=== PATIENT | female | born 1950 | race Caucasian/White ===

== ENCOUNTER → 2020-03-10 12:24 | Outpatient (CLI) | payer MEDICARE, SELFPAY ==
--- NOTE | ~2020-03-10 | MM_ITS ---
EXAMINATION: MM screening krista BI w adria HISTORY: Screening mammogram TECHNIQUE: Craniocaudal and mediolateral oblique 3-D tomosynthesis images were obtained and synthetic 2-D images were generated. CAD analysis was submitted and interpreted. COMPARISON: 11/01/2018, 10/05/2017, 09/30/2016 bilateral digital screening mammogram examinations BREAST PARENCHYMAL COMPOSITION: There are scattered areas of fibroglandular density. FINDINGS: There is a new approximately 3 x 5 mm circumscribed opacity situated posteriorly in the low er outer quadrant of the left breast. Diagnostic left mammogram and left breast ultrasound are recomm ended. Otherwise there is no evidence of suspicious mass, calcification, or architectural distortion to sugg est malignancy in either breast. There are numerous bilateral benign calcifications. There has been n o other suspicious interval change. IMPRESSION: 1. No mammographic evidence of malignancy. 2. Recommend routine screening mammography in one year. BI-RADS Category 0: Incomplete: Needs additional imaging evaluation. Reviewed, dictated and finalized at location A.
== END ==
PROVIDERS: PCP Family Medicine Adolescent Medicine; Visit Provider Family Medicine Adolescent Medicine
DX: Z12.31 Encounter for screening mammogram for malignant neoplasm of breast (principal); R92.8 Other abnormal and inconclusive findings on diagnostic imaging of breast
CPT/HCPCS: 77063; 77067

== ENCOUNTER → 2020-04-14 08:10 | Outpatient (CLI) | payer MEDICARE, SELFPAY ==
--- NOTE | ~2020-04-14 | MMUS_ITS ---
EXAMINATION: MM diagnostic krista LT w adria, US breast LT limited HISTORY: New approximately 3 x 5 mm circumscribed opacity posteriorly situated and lower-outer quadra nts of left breast on screening mammogram of 03/10/2020 TECHNIQUE: Additional 3-D tomosynthesis images of the left breast were performed and synthetic 2-D im ages were generated. CAD analysis was submitted and interpreted. High resolution targeted 5:00 left b reast ultrasound was performed. COMPARISON: 03/10/2020 bilateral digital screening mammogram BREAST PARENCHYMAL COMPOSITION: There are scattered areas of fibroglandular density. FINDINGS: MAMMOGRAPHIC FINDINGS: Approximately 3 x 5 mm circumscribed opacity is confirmed posteriorly in the inner aspect of the lowe r outer quadrant of the left breast. No other mass or any architectural distortion is evident. There are scattered benign calcifications. ULTRASOUND: Targeted ultrasound at 5:00 6.5 cm from the nipple reveals a 3 x 6 mm sonolucency compatible with sma ll cyst. This corresponds to the mammographic finding. IMPRESSION: 1. Benign 3 x 6 mm cyst at 5:00 2. Routine mammographic screening is recommended. BI-RADS Category 2: Benign finding(s). Reviewed, dictated and finalized at location A. IMPRESSION: 1. Benign 3 x 6 mm cyst at 5:00 2. Routine mammographic screening is recommended. BI-RADS Category 2: Benign finding(s).
== END ==
PROVIDERS: PCP Family Medicine Adolescent Medicine; Visit Provider Physician Assistant
DX: R92.8 Other abnormal and inconclusive findings on diagnostic imaging of breast (principal)
CPT/HCPCS: 76642; 77061; 77065; G0279

== ENCOUNTER → 2021-06-01 13:03 | Outpatient (CLI) | payer MEDICARE, SELFPAY ==
--- NOTE | ~2021-06-01 | MM_ITS ---
EXAMINATION: MM screening krista BI w adria HISTORY: Screening mammogram TECHNIQUE: Craniocaudal and mediolateral oblique 3-D tomosynthesis images were obtained and synthetic 2-D images were generated. CAD analysis was submitted and interpreted. COMPARISON: 04/14/2020 diagnostic left mammogram and limited left breast ultrasound 03/10/2020, 11/01/2018, 10/05/2017 bilateral screening mammogram examinations BREAST PARENCHYMAL COMPOSITION: There are scattered areas of fibroglandular density. FINDINGS: Numerous bilateral benign sebaceous cyst calcifications. There is no evidence of suspicious mass, calcification, or architectural distortion to suggest malignancy in either breast. There has b een no suspicious interval change. IMPRESSION: 1. No mammographic evidence of malignancy. 2. Recommend routine screening mammography in one year. BI-RADS Category 2: Benign finding(s). Reviewed, dictated and finalized at location A. MER CHEMIST
== END ==
PROVIDERS: PCP Family Medicine Adolescent Medicine; Visit Provider Family Medicine Adolescent Medicine
DX: Z12.31 Encounter for screening mammogram for malignant neoplasm of breast (principal)
CPT/HCPCS: 77063; 77067

== ENCOUNTER 2021-08-17 00:15 | Day surgery (SDC) | payer MEDICARE, SELFPAY ==
[2021-08-06 14:37] VITALS: BMI 30.2
[2021-08-17 06:22] VITALS: BP 165/83; PULSE 93; RESP 18; TEMP 36.7; O2SAT 98
[2021-08-17] MEDS: LACTATED RINGERS 1,000 ML 150 ML IV CONT (06:33)
--- NOTE | 2021-08-17 07:16 | P.PNAN_ITS ---
Anes - Initial Pre Proc Eval Procedure: Operation Date: 08/17/21 07:30 Proposed Procedures p Screening Colonoscopy - Flaquito Ivey MD Date/Time: 08/17/21 07:16 Surgeon: Flaquito Ivey MD Pre Op Diagnosis: hx of colon polyps Patient Data Age: 70 Gender: F Height: 1.68 m Weight: 82.3 kg Last Vital Signs Temp 98.1 F 08/17/21 06:22 Pulse 93 08/17/21 06:22 Resp 18 08/17/21 06:22 BP 165/83 H 08/17/21 06:22 Pulse Ox 98 08/17/21 06:22 Allergies Allergy/AdvReac Type Severity Reaction Status Date / Time No Known Allergies Allergy Mild Verified 08/17/21 06:21 Home Medications Medication Instructions Recorded Confirmed Type calcium carbonate-vitamin D3 1 tablet PO DAILY 12/28/20 08/06/21 History [Calcium 600 + D(3)] levothyroxine 75 mcg PO DAILY 12/28/20 08/06/21 History quinapril-hydrochlorothiazide 1 tablet PO QPM 12/28/20 08/06/21 History simvastatin 40 mg PO DAILY 12/28/20 08/06/21 History Patient hx anesthesia problems: none Family hx anesthesia problems: none Results Review: All pre-operative results and documents have been reviewed as part of the pre-operative evaluation. PENDING SALE TO [facility] Social History Social History Smoking status: Never smoker Alcohol intake: current Alcohol use details: occasional Substance use: never Substance use type: does not use Living arrangements: with family Spiritual care concerns: No Anes - Eval Final PreProcedure Day of Procedure 08/17/21 07:16 Patient weight: obese Heart: regular rate and rhythm Lungs: clear to auscultation Airway: Mallampati scale class II Neurological: alert and oriented Last oral intake: >/= 8 hours ASA classification: III Emergent: no Anesthetic plan: proceed Anesthesia type and monitoring: general GIVS and standard monitoring Results Review: All pre-operative results and documents have been reviewed as part of the pre-operative evaluation. Informed Consent: The patient's anesthetic plan and its attendant risks and benefits were discussed with the patient/family/POA. Questions were solicited and answers provided to the satisfaction of the patient/family/POA.
--- NOTE | 2021-08-17 07:56 | WPDGICN ---
Assessment and Plan Assessment and plan (1) History of colon polyps: Code(s): Z86.010 - Personal history of colonic polyps Status: Acute Assessment and Plan: Patient has a prior history of colon polyps. She presents today for screening colonoscopy. Follow-up exams at intervals are is advised in the future. GI Consult Note Consult date/time: 08/17/21 07:56 HPI: Natalee Singer is a 70 year old female Presents for screening colonoscopy. Patient has a history of colon polyps on several previous colonoscopies. Most recently fiber 6 years ago. Patient reports her current weight appetite bowel movements are normal. She denies abdominal pain. She has had no bleeding. Family history is noncontributory. Review of Systems Review of Systems: All systems reviewed & are unremarkable except as noted in HPI and below PMFSH Social History Social History Smoking status: Never smoker Alcohol intake: current Alcohol use details: occasional Substance use: never Substance use type: does not use Living arrangements: with family Spiritual care concerns: No Meds Home Medications and Allergies Home Medications Medication Instructions Recorded Confirmed Type calcium carbonate-vitamin D3 1 tablet PO DAILY 12/28/20 08/06/21 History [Calcium 600 + D(3)] levothyroxine 75 mcg PO DAILY 12/28/20 08/06/21 History quinapril-hydrochlorothiazide 1 tablet PO QPM 12/28/20 08/06/21 History simvastatin 40 mg PO DAILY 12/28/20 08/06/21 History Allergies Allergy/AdvReac Type Severity Reaction Status Date / Time No Known Allergies Allergy Mild Verified 08/17/21 06:21 Vital Signs Vital Signs - 24 hr 08/17/21 06:22 Temperature 98.1 F Pulse Rate 93 Respiratory Rate 18 Blood Pressure 165/83 H Pulse Oximetry 98 Exam Narrative: Physical exam reveals patient to be alert. Vital signs stable. HEENT exam is unremarkable. Patient is anicteric. Lungs are clear to auscultation and percussion. Heart is without murmur or extra sounds. Abdominal exam bowel sounds are present soft nontender with no organomegaly. Digital external rectal exam is normal.
[2021-08-17 07:58] VITALS: BP 96/55; PULSE 69; RESP 17; O2SAT 94
[2021-08-17 08:08] VITALS: BP 132/79; PULSE 71; RESP 21; O2SAT 100
[2021-08-17 08:18] VITALS: BP 134/86; PULSE 71; RESP 17; O2SAT 100
== END 2021-08-17 08:27 | disposition home or self-care (01) ==
PROVIDERS: PCP Family Medicine Adolescent Medicine; Visit Provider Internal Medicine Gastroenterology
PROC: 0DJD8ZZ Inspection of Lower Intestinal Tract, Via Natural or Artificial Opening Endoscopic (ICD-10-PCS; CPT 45378; principal; 2021-08-17 07:30)
DX: Z12.11 Encounter for screening for malignant neoplasm of colon (principal); K63.5 Polyp of colon; E66.9 Obesity, unspecified; Z68.29 Body mass index [BMI] 29.0-29.9, adult
CPT/HCPCS: 45385; 88305; J2704; J7120

== ENCOUNTER → 2022-08-29 13:24 | Outpatient (CLI) | payer MEDICARE, SELFPAY ==
--- NOTE | ~2022-08-29 | MM_ITS ---
EXAMINATION: MM screening krista BI w adria HISTORY: Screening mammogram TECHNIQUE: Craniocaudal and mediolateral oblique 3-D tomosynthesis images were obtained and synthetic 2-D images were generated. CAD analysis was submitted and interpreted. COMPARISON: 06/01/2021 bilateral screening mammogram 04/14/2020 diagnostic left mammogram and limited left breast ultrasound 03/10/2020 bilateral screening mammogram BREAST PARENCHYMAL COMPOSITION: There are scattered areas of fibroglandular density. FINDINGS: Scattered bilateral benign calcifications, particularly multiple sebaceous calcifications.. There is no evidence of suspicious mass, calcification, or architectural distortion to suggest malig magali in either breast. There has been no suspicious interval change. IMPRESSION: 1. No mammographic evidence of malignancy. 2. Recommend routine screening mammography in one year. BI-RADS Category 2: Benign finding(s). Reviewed, dictated and finalized at location A. LOADER
== END ==
PROVIDERS: PCP Family Medicine Adolescent Medicine; Visit Provider Family Medicine Adolescent Medicine
DX: Z12.31 Encounter for screening mammogram for malignant neoplasm of breast (principal)
CPT/HCPCS: 77063; 77067

== ENCOUNTER 2024-10-08 09:36 | Outpatient (CLI) | payer MEDICARE, SELFPAY ==
--- NOTE | ~2024-10-08 | MM_ITS ---
EXAMINATION: MM screening krista BI w adria HISTORY: Screening TECHNIQUE: Craniocaudal and mediolateral oblique 3-D tomosynthesis images were obtained and synthetic 2-D images were generated. CAD analysis was submitted and interpreted. COMPARISON: Comparison to multiple prior studies sequentially, with oldest reviewed study dated 10/05. BREAST PARENCHYMAL COMPOSITION: Not dense: There are scattered areas of fibroglandular density. FINDINGS: There is no evidence of suspicious mass, calcification, or architectural distortion to sugg est malignancy in either breast. There has been no suspicious interval change. IMPRESSION: 1. No mammographic evidence of malignancy. 2. Recommend routine screening mammography in one year. BI-RADS Category 1: Negative Reviewed, dictated and finalized at location B.
--- OUTSIDE RECORDS SUMMARY | 2024-10-08 10:31 | XMS_ITS | Clinical Summary ---
Author Organization [facility] Address [address] [address] Phone Care Team Providers Care Bottle Labeler Name Role Phone Elan Lobato MD Primary Care Provider + Social History Tobacco Use Types Packs/Day Years Used Date Smoking Tobacco: Never Assessed Comments Unknown Sex and Gender Information Value Date Recorded Sex Assigned at Not on file Legal Sex Female 7:20 PM CDT Gender Identity Not on file Sexual Orientation Not on file Plan of Treatment Health Maintenance Due Date Last Done Comments DEXA Bone Density 1950 Hepatitis C Virus (HCV) Screening 1950 TdaP Immunization 1950 Colonoscopy 10/10/1995 Colorectal Cancer Screening 10/10/1995 Cologuard 2000 Immunochemical Fecal Occult Blood 2000 Mammogram 2000 Pneumococcal Immunization (5 0+ years) (1 of 1 - PCV) 2000 Zoster Immunization (1 of 2) 2000 Influenza Immunization (#1) 2024 SARS-COV-2 Immunization (2023- season) 2024 Respiratory Syncytial Virus (RSV) Immunization (Adult) (1 - 1-dose 75+ series) 2025 Hepatitis B Immunization Aged Out No longer eligible based on patient's age to complete this topic Meningococcal Immunization (ACWY) Aged Out No longer eligible based on patient's age to complete this topic Rotavirus Immunization Aged Out No lo nger eligible based on patient's age to complete this topic Insurance [employer] SOI Care Teams Bottle Labeler Relationship Specialty Start Date End Date Elan Lobato MD [address] [place] [address] PCP - General Family Medicine 10/28/20
--- OUTSIDE RECORDS SUMMARY | 2024-10-08 10:31 | XMS_ITS | Clinical Summary ---
[facility] Organization [facility] Address [address] David: Epic Prelude ADT [place] [address] Care Team Providers Care Barrel Polisher Name Role Phone Unavailable Primary Care Provider Unavailabl e Immunizations Immunization Administration Dates Next Due (COMIRNATY)(12 YR UP) COVID- 19 VACCINE, MRNA, SPIKE PROTEIN, LNP, OCTAVIO(PF) 30 MCG/0.3 ML IM SUSP 05/03/2024 INFLUENZA VACCINE HIGH DOSE QUADRIVALENT 65 YR U P PF IM 05/03/2022 INFLUENZA VACCINE HIGH DOSE TRIVALENT SPLIT VIRUS, (65 YR UP), 0.5ML (PF), IM 05/03/2024 Social History Tobacco Use Types Packs/Day Years Used Date Smoking Tobacco: Never Assessed Comments Unknown Sex and Gender Information Value Date Recorded Sex Assigned at Not on file Legal Sex Female 3:27 PM CDT Gender Identity Not on file Sexual Orientation Not on file Plan of Treatment Health Maintenance Due Date Last Done Comments DTAP/TDAP/TD VACCINES (1 - Tdap) 1969 BREAST CANCER SCREENING 1990 COLORECTAL SCREENING 10/10/1995 Colorectal Cancer Screening 10/10/1995 FIT-DNA Q 3 years 10/10/1995 FIT/FOBT Q 1 year 10/10/1995 Flex Sig/CT Colonography Q 5 years 10/10/1995 PNEUMOCOCCAL VACCINE 50+ YEA RS (1 of 1 - PCV) 2000 ZOSTER VACCINE (1 of 2) 2000 OSTEOPOROSIS SCREENING 10/10/2015 COVID-19 Vaccine (2 - 2023- season) 11/01/202405/2024 RSV VACCINE (60+ or ) (1 - 1-dose 75+ series) 2025 INFLUENZA VACCINE Completed 05/03/2024, 05/03/2022 Insurance RX [employer] Medicare Part D
== END 2024-10-08 09:37 | disposition home or self-care (01) ==
LOC: ANHIMG 09:38
PROVIDERS: PCP Family Medicine Adolescent Medicine; Visit Provider Family Medicine Adolescent Medicine
DX: Z12.31 Encounter for screening mammogram for malignant neoplasm of breast (principal)
CPT/HCPCS: 77063; 77067

== ENCOUNTER 2024-12-23 10:02 | Outpatient (CLI) | payer MEDICARE, SELFPAY ==
--- NOTE | ~2024-12-23 | DEXA_ITS ---
Bone Density Report Name: AFSHIN ALEX Age: 74 Sex: Female Ethnicity: White Date of : 1950 Indication: postmenopausal; screening for osteoporosis; height loss; hysterectomy; Referring Provider: FERMÍN DEL ANGEL Study: Bone densitometry was performed. Exam Date: December 23, 2024 Accession number: [id number] Bone Density: Region BMD T-score Z-score Classification AP Spine(L1-L4) 1.210 1.5 3.8 Normal Femoral Neck (Left) 0.901 0.5 2.5 Normal Total Hip (Left) 1.141 1.6 3.4 Normal Femoral Neck (Right) 0.773 -0.7 1.3 Normal Total Hip (Right) 1.098 1.3 3.0 Normal Total Hip Mean 1.120 1.5 3.2 Normal World Health Organization criteria for BMD impression classify patients as: Normal (T-score at or above -1.0), Osteopenia (T-score between -1.0 and -2.5), or Osteoporosis (T-score at or below -2.5). 10-year Fracture Risk: FRAX not reported because: All T-scores for Spine Total, Hip Total, Femoral Neck at or above -1.0 Clinical Information Provided by Patient: Has used the following medications: Vitamin D, Calcium Has the following medical conditions: Hysterectomy Patient maximum height was 65.0 Menopause Age: 45 No regular weight bearing exercise Drinks caffeinated beverages Onset of menses at age 13 Number of children 1 Impression: The patient has normal bone mass. Discussion: BONE DENSITY IS ABOVE THE MINIMUM DESIRABLE LEVEL AT ALL SKELETAL SITES TESTED. This patient?s bone mineral density is above the minimum desirable level (T-score -1.0 or better) at all sites measured. The patient should follow a healthful lifestyle (good nutrition with adequate calcium and vitamin D, and appropriate weight-bearing exercise). Follow-Up: Consider repeating this study in 5 years or sooner if there is some new clinical indication. Reported by: FATMATA on 12/23/2024 10:43:00 AM. Reviewed, dictated and finalized at location A.
--- OUTSIDE RECORDS SUMMARY | 2024-12-23 10:50 | XMS_ITS | Clinical Summary ---
Author Organization [facility] Address [address] [address] Phone Care Team Providers Care Windrower Operator Name Role Phone Elan Lobato MD Primary [...] this topic Insurance [employer] SOI Care Teams Windrower Operator Relationship Specialty Start Date End Date Elan Lobato MD PCP - General Family Medicine 10/28/20
--- OUTSIDE RECORDS SUMMARY | 2024-12-23 10:50 | XMS_ITS | Clinical Summary ---
Author Organization [facility] Address [address] David: Epic Prelude ADT [place] [address] Care Team Providers Care News Librarian Name Role Phone Unavailable Primary Care Provider [...]
== END 2024-12-23 10:03 | disposition home or self-care (01) ==
PROVIDERS: PCP Family Medicine Adolescent Medicine; Visit Provider Family Medicine Adolescent Medicine
DX: Z78.0 Asymptomatic menopausal state (principal)
CPT/HCPCS: 77080